=== PATIENT | male | born 1975 | race Hispanic/Latino ===

== ENCOUNTER 2020-07-19 09:56 | Emergency (ER) | payer SELFPAY ==
[2020-07-19] MEDS ORDERED: Adacel (T-DAP) 0.5 ML SYRINGE ONE (10:09)
[2020-07-19] MEDS ORDERED: CEFAZOLIN 1 GM VIAL ONE (11:01)
[2020-07-19] MEDS ORDERED: Sodium Chloride 0.9% 1,000 ML ONE (11:01)
[2020-07-19] MEDS ORDERED: Sodium Chloride 0.9% 100 ML ONE (11:01)
--- NOTE | 2020-07-19 11:20 | RAD ---
RIGHT THUMB 3 VIEWS: Date: 07/19/2020 HISTORY: Injury, right thumb pain. FINDINGS/IMPRESSION: No acute fracture or dislocation is seen. There is a radiopaque density in the superficial soft tissu es of the distal thumb (likely nail bed), suspicious for foreign body. POS: OFF
== END 2020-07-19 12:45 | disposition short-term general hospital (02) ==
LOC: NAV ERS 09:56
DX: S68.021A Partial traumatic metacarpophalangeal amputation of right thumb, initial encounter (principal); I10 Essential (primary) hypertension; Z79.899 Other long term (current) drug therapy; W27.0XXA Contact with workbench tool, initial encounter; Y92.69 Other specified industrial and construction area as the place of occurrence of the external cause; Y99.0 Civilian activity done for income or pay
CPT/HCPCS: 90471; 90715; 96365; J0690; J7050